=== PATIENT | male | born 1945 | race Caucasian/White ===

== ENCOUNTER → 2020-06-03 | Day surgery (SDC) | payer MEDICARE ==
[~2020-06-03] MED LIST: AMARYL2 MG PO; ASCORBIC ACID500 MG PO; B-12500 MCG PO; CINNAMON500 MG PO; CIPRO500 MG PO; COZAAR100 MG PO; CRESTOR40 MG PO; DICLO GEL1 EACH TOP; DOXYCYCLINE MO100 M1 PO; FLOMAX 0.4 MG0.4 MG PO; GABAPENTIN600 MG PO; GLIMEPIRIDE4 MG PO; HCTZ25 MG PO; HUMULIN R100 UNIT/1 SC; HYDROCODONE-CH473 ML PO; HYTRIN5 MG PO; LANTUS SOL100 UNIT/1 SC; LANTUS100 UNIT/1 SC; LEVAQUIN750 MG PO; LEVO TOP; LIDOCAINE 5% OINT TOP; LIPITOR40 MG PO; MAGNESIUM 400 MG PO; METRONIDAZOLE500 MG PO; MUCINEX 600MG600 MG PO; NAPROXEN500 MG PO; NEURONTIN300 MG PO; NORCO 5-325 TA1 EACH PO; NORVASC5 MG PO; PRILOSEC20 MG PO; REVATIO 20MG TA20 MG PO; TERAZOSIN HCL5 MG PO; TESSALON PERLE100 MG PO; VITAMIN B-121000 MC1 IM; VITAMIN B-121000 MC1 PO; VITAMIN D310 MC1 PO; ZINC30 MG PO; [UNRECOGNIZED DRUG - OTHER] TOP
[2020-06-03 08:33] LABS: HCT 32.7 % (42.0-52.0); MCH 33.2 pg (25.0-31.0); MCHC 36.7 g/dL (32.0-36.0); MCV 90.6 fL (78.0-100.0); MPV 10.2 fL (6.0-9.5); RBC 3.61 M/uL (4.70-6.00); RDW 13.9 % (11.5-14.0); WBC 5.5 K/uL (4.0-10.5)
[2020-06-03 08:59] LABS: ALBUMIN 3.7 g/dL (3.4-5.0); BILIRUBIN - TOTAL 0.8 mg/dL (0.2-1.0); BUN/CREAT RATIO (CALC) 16.8 RATIO; CREATININE 1.37 mg/dL (0.67-1.17); GLOBULIN (CALCULATION) 3.2 g/dL; TOTAL PROTEIN 6.9 g/dL (6.4-8.2)
== END | disposition home or self-care (01) ==
LOC: FAS 07:12
PROVIDERS: Surgery
DX: D46.9 Myelodysplastic syndrome, unspecified (principal); J30.9 Allergic rhinitis, unspecified; M19.90 Unspecified osteoarthritis, unspecified site; N40.0 Benign prostatic hyperplasia without lower urinary tract symptoms; K21.9 Gastro-esophageal reflux disease without esophagitis; I10 Essential (primary) hypertension; E78.00 Pure hypercholesterolemia, unspecified; E11.42 Type 2 diabetes mellitus with diabetic polyneuropathy; E11.22 Type 2 diabetes mellitus with diabetic chronic kidney disease; N18.30 Chronic kidney disease, stage 3 unspecified; Z79.4 Long term (current) use of insulin; Z79.899 Other long term (current) drug therapy; Z87.891 Personal history of nicotine dependence; Z88.0 Allergy status to penicillin; Z88.8 Allergy status to other drugs, medicaments and biological substances
CPT/HCPCS: 36415; 80053; 88305; 88341; 88342; J1642; J2250; J2704; J7120

== ENCOUNTER 2020-11-19 10:00 | Emergency (ER) | payer MEDICARE ==
[2020-11-19] MEDS ORDERED: NAPROXEN500 MG PO (10:34)
== END 2020-11-19 10:45 | disposition home or self-care (01) ==
LOC: FER 10:00
DX: M26.629 Arthralgia of temporomandibular joint, unspecified side (principal); I10 Essential (primary) hypertension; E11.9 Type 2 diabetes mellitus without complications
CPT/HCPCS: 99283

== ENCOUNTER 2021-02-18 12:09 | Emergency (ER) | payer MEDICARE ==
[2021-02-18] MEDS ORDERED: NORCO 5-325 TA1 EACH PO (14:46)
== END 2021-02-18 15:24 | disposition home or self-care (01) ==
LOC: FER 12:09
DX: S90.01XA Contusion of right ankle, initial encounter (principal); I10 Essential (primary) hypertension; E11.40 Type 2 diabetes mellitus with diabetic neuropathy, unspecified; Z88.0 Allergy status to penicillin; Z88.8 Allergy status to other drugs, medicaments and biological substances; W20.8XXA Other cause of strike by thrown, projected or falling object, initial encounter; Y92.009 Unspecified place in unspecified non-institutional (private) residence as the place of occurrence of the external cause
CPT/HCPCS: 73610

== ENCOUNTER 2021-04-18 13:21 | Emergency (ER) | payer MEDICARE ==
[2021-04-18 16:09] LABS: BASOPHIL 0.8 % (0-2); EOSINOPHIL 3.3 % (0-7); HCT 38.2 % (42.0-52.0); HGB 13.6 g/dl (13.2-18.0); LYMPHOCYTE 29.4 % (15-48); MCH 32.1 pg (25.0-31.0); MCHC 35.6 g/dL (32.0-36.0); MCV 90.1 fL (78.0-100.0); MONOCYTE 6.6 % (0-12); MPV 9.6 fL (6.0-9.5); NEUTROPHIL 59.7 % (41-80); NRBC 0; PLT 166 K/uL (150-400); RBC 4.24 M/uL (4.70-6.00); RDW 13.3 % (11.5-14.0); WBC 6.4 K/uL (4.0-10.5)
[2021-04-18 16:09] LABS: BILIRUBIN NEGATIVE (NEGATIVE); BLOOD NEGATIVE Ery/uL (NEGATIVE); CLARITY CLEAR (CLEAR); COLOR YELLOW (YELLOW); GLUCOSE (U) 2+ mg/dL (NORMAL); LEUKOCYTES NEGATIVE Leu/uL (NEGATIVE); NITRITE NEGATIVE (NEGATIVE); PROTEIN NEGATIVE (NEGATIVE); SPECIFIC GRAVITY 1.025 (1.001-1.030); UROBILINOGEN 0.2 mg/dL (0.2-1.0)
[2021-04-18 16:19] LABS: BACTERIA TRACE; URINARY RBC RARE; URINARY WBC RARE
[2021-04-18 16:20] LABS: SQUAMOUS EPITHELIAL CELLS RARE
[2021-04-18 16:27] LABS: ALBUMIN 4.2 g/dL (3.4-5.0); BUN/CREAT RATIO (CALC) 13.8 RATIO; CREATININE 1.3 mg/dL (0.67-1.17); GLOBULIN (CALCULATION) 3.6 g/dL; POTASSIUM 3.9 mmol/L (3.5-5.1); TOTAL PROTEIN 7.8 g/dL (6.4-8.2)
[2021-04-18] MEDS ORDERED: NORCO 5-325 TA1 EACH PO (18:25)
== END 2021-04-18 18:43 | disposition home or self-care (01) ==
LOC: FER 13:21
PROVIDERS: Physician Assistant
DX: M54.9 Dorsalgia, unspecified (principal); R79.89 Other specified abnormal findings of blood chemistry; R10.9 Unspecified abdominal pain; I10 Essential (primary) hypertension; E11.9 Type 2 diabetes mellitus without complications; Z79.1 Long term (current) use of non-steroidal anti-inflammatories (NSAID); Z79.4 Long term (current) use of insulin; Z88.0 Allergy status to penicillin; Z88.8 Allergy status to other drugs, medicaments and biological substances
CPT/HCPCS: 36415; 71045; 71250; 80053; 81001; 84484; 85025; 93005